=== PATIENT | female | born 1990 | race African-American/Black ===

== ENCOUNTER 2018-11-12 10:02 | Emergency (ER) | payer MEDICAID ==
[~2018-11-12] VITALS: Ht 165.1 cm; Wt 80.7 kg
--- NOTE | 2018-11-12 10:08 | NUR ---
Called patient for triage, patient was not in ER lobby. ER Admitting states that the patient left.
[2018-11-12 10:11] VITALS: BP 127/75
--- NOTE | 2018-11-12 10:11 | NUR ---
BIB SELF. AAO X4 C/O LEFT SIDE OF THE FACE PAIN (EYE, NOSE, CHEEKS), FATIGUE, MILD DIZZINESS X 5 DAYS. PT STATES THAT SHE THOUGHT THAT THERE IS A CUT INSIDE HER NOSE, SO SHE'S BEEN CLEANING IT WITH ALCOHOL AND SHE'S BEEN PUTTING AN OTC PAIN OINTMENT. PT TOOK OTC SINUS RELIEF TAB LAST NIGHT WITH NO RELIEF. PT DENIES FEVER, N/V/D, SOB, DIFFICULTY SWALLOWING, BLURRED VISION. PT HAS FULL CLEAR SPEECH, NO FACIAL ASSYMETRY, PERRLA BRISK 3 MM, EQUAL RAYMUNDO STRENGTH TO UPPER AND LOWER EXTREMITIES. PT HAS STEADY GAIT. HOB UP. BED SIDE RAILS UP X1. ON LOW BED POSITION, LOCKED. ER TO EVALUATE PT.
--- NOTE | 2018-11-12 10:56 | NUR ---
Dr. Nelson evaluating patient at bedside.
[2018-11-12] MEDS ORDERED: KETOROLAC 60 MG/2 ML VIAL IM ONE (11:05)
--- NOTE | 2018-11-12 11:05 | NUR ---
PT IS INQUIRING OF ANY NASAL FLUSH PROCEDURE TO BE DONE AND SHE IS WONDERING IF THE DOCTOR CAN MAKE SURE TO PRESCRIBE AN ANTIBIOTIC SAFE FOR . PER PT, SHE WANTS TO MAKE SURE THAT IF SHE IS THAT IT WILL BE SAFE FOR HER. TEST RESULT IS NEGATIVE. DR ESPOSITO MADE AWARE.
[2018-11-12 11:35] VITALS: BP 125/76
--- NOTE | 2018-11-12 11:35 | NUR ---
Patient discharged with v/s stable. Written and verbal after care instructions given and explained. Patient alert, oriented and verbalized understanding of instructions. Ambulatory with steady gait. All questions addressed prior to discharge. ID band removed. Patient advised to follow up with PMD. Rx of KEFLEX, MOTRIN 800 MG given. Patient educated on indication of medication including possible reaction and side effects. Opportunity to ask questions provided and answered.
== END 2018-11-12 11:35 | disposition home or self-care (01) ==
LOC: MED 10:02
DX: J34.0 Abscess, furuncle and carbuncle of nose (principal)
CPT/HCPCS: 81002; 81025; 96372; 99283; J1885